=== PATIENT | female | born 1960 | race Caucasian/White ===

== ENCOUNTER 2024-11-26 16:12 | Emergency (ER) | payer OTHER, SELFPAY ==
[2024-11-26 16:13] VITALS: BP 168/98
--- NOTE | 2024-11-26 18:00 | ED.GENMED ---
History of Present Illness
General
Chief Complaint: Skin Surface Trauma
Time Seen by Provider: 11/26/24 17:39
History of Present Illness
History of Present Illness:
64-year-old female presents after a fall backwards down 2 steps. She hit her head on the landing. She has a laceration to the posterior scalp. She did not lose consciousness. She denies neck pain. She is not anticoagulated. She denies any
significant headache or vision change. No other complaints at this time
Phy Exam
Physical Exam
Physical Exam:
General: Well-appearing female no acute distress
HEENT: Normocephalic 3 cm vertically oriented laceration posterior scalp pupils equal round reactive to light TMs normal
Musculoskeletal exam: Cervical spine is nontender good range of motion cervical spine.
Neurologic normal gait conversing appropriately good strength to the upper and lower extremities
Course
Orders/Labs/Results
Orders:
Orders
11/26/24 17:29
CT Head W/o Iv Contrast Urgent
Comment:
Reason For Exam: head strike
Vital Signs
Initial and Last Documented VS:
Initial Vital Signs
Temp Pulse Resp BP Pulse Ox
97.7 F 99 18 168/98 99
11/26/24 16:13 11/26/24 16:13 11/26/24 16:13 11/26/24 16:13 11/26/24 16:13
Last Documented Vital Signs
Temp Pulse Resp BP Pulse Ox
97.7 F 99 18 168/98 99
11/26/24 16:13 11/26/24 16:13 11/26/24 16:13 11/26/24 16:13 11/26/24 16:13
MDM/Problems Addressed
Differential Diagnosis Includes:
Mechanical fall with head strike. There is a laceration to scalp that will require closure. CT of the head ordered to evaluate for skull fracture or intracranial hemorrhage. No indication for cervical spine imaging at this time
*Critical Care Note
Total Time (30-74mins, 75-104mins- exclusive of procedures): Not Applicable
Update Note
Update Note:
CT head negative for skull fracture or intracranial hemorrhage. The wound was cleansed with saline anesthetized in a local fashion using 1% lidocaine with epinephrine. The hair was parted out of the wound. The wound was then closed with skin
katie. A total #6 katie were required to do so. Wound care instructions were given. Stable for discharge
ED Attending Note
-
Portions of this chart may have been created with voice recognition software.� Occasional wrong word or��sound alike� substitutions may have occurred due to the inherent limitations of voice recognition software.
Discharge Plan
Departure
Patient Disposition: Home (Routine Discharge)
Date of Disposition: 11/26/24
Time of Disposition: 18:34
Patient with high blood pressure during this ER visit?: No
Discharge Problem:
Laceration
Instructions: Laceration Repair With Loda (DC)
Activity Restrictions/Additional Instructions:
You may ice to the sore spot. You may use Tylenol or ibuprofen for pain. Have katie removed in about 1 week. Return if needed otherwise
Interventions
Interventions:
*Risk Screen - Suicide Last Done: 11/26/24 16:26
*Neglect/Abuse Screening Last Done: 11/26/24 16:26
*ED COVID-19 Vaccine History Last Done: 11/26/24 16:25
ED-Skin Assessment Last Done: 11/26/24 18:26
Discharge Date and Time
Print Language: SYRIAN
== END 2024-11-26 18:51 | disposition home or self-care (01) ==
LOC: EMR 16:12
PROVIDERS: EMERGENCY PHYSICIAN Emergency Medicine
DX: S01.01XA Laceration without foreign body of scalp, initial encounter (principal); W10.9XXA Fall (on) (from) unspecified stairs and steps, initial encounter
CPT/HCPCS: 12002; 99284; 70450